=== PATIENT | male | born 1990 | race Caucasian/White ===

== ENCOUNTER 2024-01-17 20:29 | Inpatient (IN) | payer OTHER ==
[~2024-01-17] VITALS: Ht 170.2 cm; Wt 105.7 kg
[2024-01-17 20:33] VITALS: BP_SYST 184; PULSE 64; RESP 25; TEMP 98.7; O2SAT 100
[2024-01-17 20:53] LABS: BILIRUBIN,URINE 2+ (NEGATIVE); BLOOD, URINE NEGATIVE (NEGATIVE); CLARITY/URINE CLEAR (CLEAR); GLUCOSE,URINE NEGATIVE (NEGATIVE); KETONES,URINE NEGATIVE (NEGATIVE); NITRITE, URINE NEGATIVE (NEGATIVE); PH,URINE 7.5 (5.0-8.0); PROTEIN URINE NEGATIVE (NEGATIVE)
[2024-01-17 21:01] LABS: COLOR,URINE AMBER (YELLOW); LEUKOCYTE ESTERASE ,URINE TRACE (NEGATIVE)
[2024-01-17 21:02] LABS: BACTERIA,URINE FEW /HPF (None Seen); MUCUS,URINE None Seen /LPF (None Seen); RBC,URINE 0-3 /HPF (0-3)
[2024-01-17 21:32] LABS: BASOPHILS % (AUTO) 0.4 % (0.0-2.0); EOSINOPHILS # (AUTO) 0.2 K/uL (0.0-0.4); EOSINOPHILS % (AUTO) 3.1 % (0.0-4.0); HEMATOCRIT 44.1 % (36-54); HEMOGLOBIN 15.3 g/dL (14.0-18.0); LYMPHOCYTES # (AUTO) 2.9 K/uL (1.0-5.5); LYMPHOCYTES % (AUTO) 41.6 % (20.5-51.5); MEAN CORPUSCULAR HEMOGLOBIN 30 pg (27-31); MEAN CORPUSCULAR HGB CONC 35 % (32-36); MEAN CORPUSCULAR VOLUME 86 fL (79.0-98.0); MONOCYTES # (AUTO) 0.5 K/uL (0.0-1.0); MONOCYTES % (AUTO) 7.4 % (1.7-9.3); NEUTROPHILS # (AUTO) 3.3 K/uL (1.8-7.7); NEUTROPHILS % (AUTO) 47.5 % (40.0-70.0); PLATELET COUNT (AUTO) 228 K/uL (130-430); RED BLOOD CELL COUNT(AUTO) 5.13 MIL/uL (4.2-6.2); RED CELL DISTRIBUTION WIDTH 13.3 % (9.0-15.0)
[2024-01-17 21:40] LABS: ANION GAP 6 (5-15); CALCIUM 9.6 mg/dL (8.4-11.0); CARBON DIOXIDE 31 mmol/L (23-29); CHLORIDE 102 mmol/L (98-107); CREATININE 0.85 mg/dL (0.55-1.30); GFR AFRICAN AMERICAN 135 mL/min (>90); GFR NON AFRICAN-AMERICAN 112 mL/min (>90); GLUCOSE 107 mg/dL (74-106); POTASSIUM 3.4 mmol/L (3.5-5.1); SODIUM SERUM 139 mmol/L (136-145); UREA NITROGEN, BLOOD 9 mg/dL (8-21)
[2024-01-17 21:47] LABS: ALANINE AMINOTRANSFERASE 524 U/L (12-78); AMYLASE 36 U/L (0-100); ASPARTATE AMINOTRANSFERASE 212 U/L (10-37); LIPASE 38 U/L (16-77); TOTAL BILIRUBIN 2.7 mg/dL (0.0-1.0); TOTAL PROTEIN, SERUM 7.6 g/dL (6.4-8.3)
[2024-01-17] MEDS ORDERED: PIPERACILLIN/TAZOBACTAM 4.5 GM/VIAL (ZOSYN) IV ONE (22:30)
[2024-01-17] MEDS: ONDANSETRON HCL 4 MG/2 ML VIAL IVP ONE (22:32)
[2024-01-17] MEDS: MORPHINE 4 MG INJ. 4 MG/ML VIAL IVP ONE (22:33)
[2024-01-17] MEDS: PIPERACILLIN/TAZO 4.5 GM in NS 100 ML IV ONE (22:33)
[2024-01-17] MEDS: NACL 0.9% 1,000 ML IV ONE (22:34)
[2024-01-17] MEDS: FAMOTIDINE PF 20 MG/2 ML VIAL IVP ONE (23:43)
[2024-01-18] MEDS ORDERED: ONDANSETRON HCL 4 MG/2 ML VIAL IVP PRN
[2024-01-18] MEDS ORDERED: METOCLOPRAMIDE HCL 10 MG/2 ML VIAL IVP PRN
[2024-01-18] MEDS: cloNIDine HCL 0.1 MG TABLET PO PRN (00:02)
[2024-01-18] MEDS: hydrALAZINE HCL 20 MG/ML VIAL IVP PRN (02:46)
[2024-01-18] MEDS ORDERED: PIPERACILLIN/TAZOBACTAM 3.375 GM/VIAL (ZOSYN) IV ONE (05:48)
[2024-01-18] MEDS: PIPERACILLIN/TAZO 3.375/DEX-IS 50 ML IV SCH (05:50)
[2024-01-18] MEDS: HYDROmorphone 1 MG/ML INJ. CARTRIDGE IVP PRN ×2 (06:30→14:14)
[2024-01-18 07:22] LABS: BASOPHILS % (AUTO) 0.7 % (0.0-2.0); EOSINOPHILS # (AUTO) 0.2 K/uL (0.0-0.4); EOSINOPHILS % (AUTO) 4.7 % (0.0-4.0); HEMOGLOBIN 14.8 g/dL (14.0-18.0); LYMPHOCYTES # (AUTO) 1.9 K/uL (1.0-5.5); LYMPHOCYTES % (AUTO) 35.7 % (20.5-51.5); MEAN CORPUSCULAR HEMOGLOBIN 30 pg (27-31); MEAN CORPUSCULAR HGB CONC 35 % (32-36); MEAN CORPUSCULAR VOLUME 86 fL (79.0-98.0); MONOCYTES # (AUTO) 0.5 K/uL (0.0-1.0); MONOCYTES % (AUTO) 10.3 % (1.7-9.3); NEUTROPHILS # (AUTO) 2.6 K/uL (1.8-7.7); NEUTROPHILS % (AUTO) 48.6 % (40.0-70.0); PLATELET COUNT (AUTO) 222 K/uL (130-430); RED BLOOD CELL COUNT(AUTO) 4.89 MIL/uL (4.2-6.2); RED CELL DISTRIBUTION WIDTH 13.1 % (9.0-15.0); WHITE BLOOD COUNT (AUTO) 5.3 K/uL (4.8-10.8)
[2024-01-18 07:35] LABS: ALBUMIN 3.4 g/dL (3.4-4.8); CALCIUM 8.9 mg/dL (8.4-11.0); CREATININE 0.65 mg/dL (0.55-1.30); POTASSIUM 3.5 mmol/L (3.5-5.1); TOTAL BILIRUBIN 2.9 mg/dL (0.0-1.0); TOTAL PROTEIN, SERUM 6.8 g/dL (6.4-8.3)
[2024-01-18 07:42] LABS: INR 0.9 (0.80-1.20); PROTHROMBIN TIME 9.8 SECS (9.5-12.5)
[2024-01-18] MEDS: FAMOTIDINE PF 20 MG/2 ML VIAL IVP SCH (09:21)
[2024-01-18] MEDS ORDERED: ACETAMINOPHEN 325 MG TABLET PO PRN ×2 (11:30→12:30)
[2024-01-18] MEDS ORDERED: ACETAMINOPHEN 325 MG TABLET ONE (11:48)
[2024-01-18] MEDS: ACETAMINOPHEN 650 MG SUPP.RECT RC PRN (12:33)
[2024-01-18 13:12] VITALS: BP_SYST 135; PULSE 63; RESP 18; TEMP 97.4
[2024-01-18 14:49] VITALS: BP_SYST 135; PULSE 63; RESP 18; TEMP 97.4; O2SAT 98
[2024-01-18 14:50] VITALS: O2SAT 98
[2024-01-18 16:00] VITALS: BP_SYST 132; PULSE 68; RESP 18; TEMP 98.1; O2SAT 98
[2024-01-18 19:00] VITALS: BP_SYST 135; PULSE 72; RESP 16; TEMP 98.2; O2SAT 98
[2024-01-18 20:00] VITALS: BP_SYST 135; PULSE 72; RESP 16; TEMP 98.2; O2SAT 98
[2024-01-18] MEDS: HYDROmorphone 2 MG/ML VIAL IVP PRN (21:04)
[2024-01-19] VITALS (7 sets, daily range): BP systolic 132–170; PULSE 56–74; RESP 16–17; TEMP 98–98.4; O2SAT 98–100
[2024-01-19 04:36] LABS: BASOPHILS % (AUTO) 0.6 % (0.0-2.0); EOSINOPHILS # (AUTO) 0.3 K/uL (0.0-0.4); EOSINOPHILS % (AUTO) 4.7 % (0.0-4.0); HEMATOCRIT 40.2 % (36-54); HEMOGLOBIN 14.2 g/dL (14.0-18.0); LYMPHOCYTES # (AUTO) 2.7 K/uL (1.0-5.5); LYMPHOCYTES % (AUTO) 45.1 % (20.5-51.5); MEAN CORPUSCULAR HEMOGLOBIN 31 pg (27-31); MEAN CORPUSCULAR HGB CONC 35 % (32-36); MEAN CORPUSCULAR VOLUME 86 fL (79.0-98.0); MONOCYTES # (AUTO) 0.5 K/uL (0.0-1.0); MONOCYTES % (AUTO) 8.2 % (1.7-9.3); NEUTROPHILS # (AUTO) 2.5 K/uL (1.8-7.7); NEUTROPHILS % (AUTO) 41.4 % (40.0-70.0); PLATELET COUNT (AUTO) 220 K/uL (130-430); RED BLOOD CELL COUNT(AUTO) 4.66 MIL/uL (4.2-6.2); RED CELL DISTRIBUTION WIDTH 13.6 % (9.0-15.0)
[2024-01-19 05:09] LABS: ALBUMIN 3.3 g/dL (3.4-4.8); CALCIUM 9.3 mg/dL (8.4-11.0); CREATININE 0.94 mg/dL (0.55-1.30); FREE T4 (FREE THYROXINE) 1.2 ng/dL (0.6-1.6); POTASSIUM 3.6 mmol/L (3.5-5.1); THYROID STIMULATING HORMONE 0.58 uIu/mL (0.34-4.82); TOTAL PROTEIN, SERUM 6.8 g/dL (6.4-8.3)
[2024-01-19 08:06] LABS: HEPATITIS C VIRUS AB Non Reactive (Non Reactive)
[2024-01-19 10:07] LABS: HEPATITIS A AB, IgM Negative (Negative); HEPATITIS B CORE AB, IgM Negative (Negative); HEPATITIS B SURFACE AG Negative (Negative)
[2024-01-19] MEDS: MEPERIDINE 100 MG INJ. 100 MG/ML VIAL ONE (14:32)
[2024-01-19] MEDS: BENZOCAINE 20% 0.5mL UD SPRAY MM ONE (14:32)
[2024-01-19] MEDS: MIDAZOLAM HCL 5 MG/5 ML VIAL ONE (14:32)
[2024-01-19] MEDS ORDERED: SUCR1ORA4 GT (14:50)
[2024-01-19] MEDS ORDERED: PRO40 PO (14:51)
[2024-01-19] MEDS: PANTOPRAZOLE SODIUM 40 MG TAB PO ONE (14:52)
[2024-01-19] MEDS: amLODIPine BESYLATE 5 MG TABLET PO ONE (16:28)
[2024-01-19] MEDS: SUCRALFATE 1 GM/10 ML UDC GT SCH (17:31)
[2024-01-19] MEDS ORDERED: PANTOPRAZOLE SODIUM 40 MG TAB PO SCH (21:00)
[2024-01-20] MEDS ORDERED: amLODIPine BESYLATE 5 MG TABLET PO SCH (09:00)
== END 2024-01-19 21:32 | disposition home or self-care (01) | DRG 241 ==
LOC: SED 20:29 → STU 23:24 → SMU 01-18 17:07 → STU 01-18 21:24 → SMU 01-19 21:03
PROVIDERS: ADMIT Internal Medicine; ATTEND Internal Medicine
PROC: 0DB68ZX Excision of Stomach, Via Natural or Artificial Opening Endoscopic, Diagnostic (ICD-10-PCS; 2024-01-19)
PROC: 0DB98ZX Excision of Duodenum, Via Natural or Artificial Opening Endoscopic, Diagnostic (ICD-10-PCS; principal; 2024-01-19 15:00)
DX: K29.00 Acute gastritis without bleeding (principal); B17.9 Acute viral hepatitis, unspecified; I16.0 Hypertensive urgency; E66.9 Obesity, unspecified; N39.0 Urinary tract infection, site not specified; R74.01 Elevation of levels of liver transaminase levels; E87.6 Hypokalemia; R79.89 Other specified abnormal findings of blood chemistry; Z68.36 Body mass index [BMI] 36.0-36.9, adult
CPT/HCPCS: 36415; 43239; 71045; 74181; 76700; 80048; 80053; 80074; 80076; 81000; 81001; 81015; 82150; 83605; 83690; 84439; 84443; 84484; 85025; 85610; 85730; 87040; 87081; 87086; 88305; 88312; 88313; 99285; G0378; J0360; J1170; J2175; J2250; J2270; J2405; J2543; J3490